=== PATIENT | female | born 1980 | race Asian ===

== ENCOUNTER 2018-10-16 23:18 | Inpatient (IN) | payer OTHER ==
[2018-10-17] MEDS ORDERED: Buffered Lidocaine 1% SYRIN* 1 ML/SYRINGE INTRADERM ONE (00:41)
[2018-10-17] MEDS ORDERED: Promethazine INJ(RESTRICTED)* 25 MG/ML 1 ML VIAL IV ONE (00:41)
[2018-10-17] MEDS ORDERED: Nalbuphine* 10 MG/ML 1 ML VIAL IV ONE (00:41)
[2018-10-17] MEDS ORDERED: Dinoprostone* 10 MG VAG.SUPP VAGINAL ONE (00:41)
[2018-10-17] MEDS ORDERED: Penicillin G Potassium IV* 5,000,000 UNITS in NS 0.9% 100 ML* 100 ML IVPB ONE (00:41)
[2018-10-17] MEDS ORDERED: Lactated Ringers 1000 ML Bag* 1,000 ML IV ONE ×2 (00:41→17:07)
--- NOTE | 2018-10-17 00:58 | HP ---
General Information - Reason for Visit 38yo, , IUP@37+2, PROM - General Information Maternal Age: 38 Grav: 3 Para: 1 SAB: 1 IEA: 0 Estimated Due Date: 11/04/18 Determined By: Early Ultrasound Gestational Age in Weeks/Days: 37+2 Maternal Blood Type and Rh: O Positive - Results this Serology/RPR Result: Non-Reactive Rubella Result: Immune HBsAg Result: Negative HIV Result: Negative GBS Culture Result: Positive Past Medical History Delivery History: Hx Uncomplicated Vaginal Delivery Pertinent Past Medical History: See Records Past Medical History Comment: Migraine Pertinent Past Surgical History: None Pertinent Family History: See Records Family History Comment: PGF Intestinal cancer MGM Intestinal cancer - Antepartal Records Antepartal Records: Reviewed, Complicated by: - AMA (38) Review of Systems Constitutional: Comfortable CV Complaint: No Respiratory: Shortness of Breath: No Gastrointestinal: No Nausea/Vomiting, Normal Bowel Movement Genitourinary: No Dysuria, No Bleeding Musculoskeletal: Contractions Neurological: No Headache, No Visual Changes Movement: Normal Exam Allergies/Adverse Reactions: Allergies No Known Allergies Allergy (Verified 08/31/17 12:54) Vital Signs 10/16/18 23:18 Temperature 98.5 F Pulse Rate 90 Respiratory 18 Rate Blood Pressure 139/75 (mmHg) O2 Sat by Pulse 96 Oximetry Lab Values - Entire Visit: Laboratory Tests 10/16/18 23:00 Vag Amniotic Fld Detect Positive - Measurements Pre- Weight: 138 lb - Exam Breast: Breast Exam Deferred CVA: No CVA Tenderness Extremities: No Edema Heart: Normal Rhythm/Heart Sounds HEENT: No Significant Findings Lungs: Clear Bilaterally Rectal: Rectal Exam Deferred Reflexes: DTR 2+ Thyroid: No Thyromegaly - Abdominal Exam Abdomen Exam: Non-Tender, Fundal Height Consistent with Dates - Ultrasound/Biophysical Profile Ultrasound Status: Not Done Targeted Exam Findings See L&D Outpatient Visit Provider Note for Findings: N/A Estimated Weight: 7-8lbs Cervical Exam: 1cm, 2cm Effacement: <50% Station: -3 Presenting Part: Vertex Membrane Status: SROM Amniotic Fluid Evaluation: Positive ROM Plus Bleeding/Discharge: None EFM Findings - External Monitor Findings Baseline Heart Rate: 130 External Monitor Findings: Accelerations Present, No Pattern of Variable or Late Decelerations, Variability Moderate External Monitor Findings Comment: No evidence of acidemia Contractions: Irregular, 45-90 Seconds Assessment/Plan - Assessment 38yo, , IUP@37+2, confirmed PROM VSS, afebrile GBS+ VE: 1-2/30%/-3, vtx - Jim 4 PROM, clear fluid Irregular contractions - Obstetrical Risk Factors Obstetrical Risk Factors: GBS Positive - Plan Plan: Induction, Cervical Ripening, Admit - Anticipate Vaginal Delivery Plan Comment: Admit to L&D Start abx for GBS prophylaxis Discussed risks vs. benefits of expectant management vs. ripening/IOL. Per ACOG recommendation and pt preference, proceed with ripening/IOL Given Jim score of 4, will start with Cervidil for ripening Epidural PRN in active labor Anticipate progression to - Date/Time of Admission Date of Admission: 10/17/18 Time of Admission: 00:30
[2018-10-17] MEDS ORDERED: Lactated Ringers 1000 ML Bag* 1,000 ML IV SCH ×3 (01:00→20:00)
[2018-10-17 01:45] LABS: ABS Basophils 0.1 10^3/ul (0-0.2); ABS Eosinophils 0 10^3/ul (0-0.6); ABS Lymphocytes 1.7 10^3/ul (1.0-4.8); ABS Monocytes 0.8 10^3/ul (0-0.8); ABS Neutrophils 6.4 10^3/ul (1.5-7.7); ABS Nucleated RBC 0 10^3/ul; Eosinophil % 0.5 %; Hematocrit 29 % (35-47); Hemoglobin 9.9 g/dl (12.0-16.0); Lymphocyte % 18.8 %; Mean Corpuscular HGB Conc 34 g/dl (31-36); Mean Corpuscular Hemoglobin 31 pg (27-31); Mean Corpuscular Volume 90 fL (80-97); Mean Platelet Volume 8.3 fL (7.4-10.4); Nucleated Red Blood Cells % 0; Platelet Count 270 10^3/ul (150-450); Red Blood Count 3.22 10^6/ul (4.00-5.40); Red Cell Distribution Width 14 % (10.5-15)
[2018-10-17] MEDS: Penicillin G Potassium IV* 2,500,000 UNITS in NS 0.9% 100 ML* 100 ML IVPB SCH ×4 (06:00→18:02)
--- NOTE | 2018-10-17 10:32 | PN ---
Progress Note - Progress Note Date of Service: 10/17/18 Note: S: Patient comfortable, feels contractions are still mild. Small amount of spotting, no bleeding. O: Cervidil fell out approx 0930 VE deferred for now VSS, afebrile FHT 130 Cat 1 UCs approx q 4-6 min A: IUP @ 37+3 weeks gestation Rupture of membranes GBS positive No evidence metabolic acidemia P: Patient to ambulate, see if contractions get stronger. PARQ discussion starting pitocin after 1-2 hours if no change in labor pattern, patients in agreement. Will likely want epidural when uncomfortable. Anticipate SVB.
[2018-10-17] MEDS ORDERED: Oxytocin in LR* 20 UNITS/1,000 ML BAG IVPB SCH ×2 (14:00→20:00)
--- NOTE | 2018-10-17 14:07 | PN ---
Progress Note - Progress Note Date of Service: 10/17/18 Note: S: Patient reports UCs are less frequent and less strong. Had lunch and a short nap, comfortable. O: VE 2/70/-3 UCs q 5-7 min FHT 135, Cat 1 vss, afebrile A: IUP @ 37+3 weeks gestation, rupture of membranes, for labor induction/ augmentation No evidence acidemia P: PARQ discussion of pitocin and patient in agreement. Begin low dose.
[2018-10-17] MEDS ORDERED: OBEPIDURAL* 250 ML EPIDURAL ONE (16:29)
[2018-10-17] MEDS ORDERED: Lidocaine 1.5% EPI 1:200,000* 30 ML SDV ONE (16:40)
--- NOTE | 2018-10-17 16:41 | PN ---
Progress Note - Progress Note Date of Service: 10/17/18 Note: S: Patient reports ctx stronger, considering epidural O: VE 6cm/90/-1 FHT appears to be 155 baseline, difficulty monitoring as patient ambulating Pit @ 4 vss, afebrile A: IUP in active labor P: Desires epidural, anesthesia aware. Anticipate SVB.
[2018-10-17] MEDS ORDERED: EPHEDrine (Pressors)* 50 MG/ML VIAL IV PUSH PRN ×2 (17:07)
[2018-10-17] MEDS ORDERED: Phenylephrine IV* 40 MCG/ML 10 ML SYRINGE IV PUSH PRN ×2 (17:07)
[2018-10-17] MEDS ORDERED: Sodium Citrate/Citric Acid* 15 ML UDC PO PRN (17:07)
[2018-10-17] MEDS ORDERED: Famotidine TAB* 20 MG PO PRN (17:07)
--- NOTE | 2018-10-17 17:29 | PN ---
Progress Note - Progress Note Date of Service: 10/17/18 Note: S: Patient comfortable with epidural O: VE by RN request due to difficulty placing catheter: 7cm/90/-2. Bulging bag felt VS stabilizing, some low after epidural placement, afebrile FHT 140 Pit off for procedure, back on @ 2 A: IUP in active labor No evidence metabolic acidemia P: Plan to monitor for some time, consider AROM. Increase Pit per protocol. Suggest side to side positions with peanut ball.
[2018-10-17] MEDS ORDERED: OBEPIDURAL* 250 ML EPIDURAL SCH (18:00)
[2018-10-17] MEDS ORDERED: Acetaminophen TAB* 325 MG PO PRN (19:44)
[2018-10-17] MEDS ORDERED: Ibuprofen TAB* 600 MG PO PRN (19:44)
[2018-10-17] MEDS ORDERED: Glycerin ADULT SUPP PR PRN (19:44)
[2018-10-17] MEDS ORDERED: Dibucaine 1% 28.35 GM TUBE PR PRN (19:44)
[2018-10-17] MEDS ORDERED: Witch Hazel PAD* JAR TOPICAL PRN (19:44)
--- NOTE | 2018-10-17 20:45 | PROCNOTE ---
[facility] OB: Delivery Note - Nursery Level of Nursery: Regular/Bedside - Perineum Perineal Injury: Perineal Laceration, 1st Degree Perineal Injury Comment: 3 stitch repair with 3-0 Rapide Perineal Repair: By Delivering Practioner - Events Delivery Events of Note: Pitocin During Labor, Pitocin Only After Delivery - Additional Delivery Notes Additional Delivery Notes: Patient admitted yesterday with SROM @ 37+2 weeks gestation. Cervidil then pitocin lead to active labor. Received epidural as desired with good relief. GBS prophylaxis was completed. Progressed to complete dilation with increased pressure and urge to push. LOL 5'3". Pushed 4 min. Baby born OA to CAITLIN @ 1918, shoulders following easily, loose nuchal and bandelaro cord unwrapped after delivery. Baby to maternal abdomen with spontaneous cry, HR >110. Apgars 9, 9. Cord doubly clamped and cut by FOB once pulsations ceased, approx 3 min. Placenta delivered @ 192 with gentle cord traction in the Concepcion presentation. Fundus firm with pitocin infusing. Small first degree perineal laceration repaired with 3 stitches, 3-0 Rapide. Patient and baby stable. Baby name Saida.
[2018-10-18] MEDS: Docusate CAP* 100 MG PO SCH ×4 (07:38→21:31)
[2018-10-18] MEDS: Penicillin G Potassium IV* 2,500,000 UNITS in NS 0.9% 100 ML* 100 ML IVPB SCH (07:38)
[2018-10-18 08:07] LABS: ABS Basophils 0 10^3/ul (0-0.2); ABS Eosinophils 0.1 10^3/ul (0-0.6); ABS Lymphocytes 1.9 10^3/ul (1.0-4.8); ABS Monocytes 0.8 10^3/ul (0-0.8); ABS Nucleated RBC 0 10^3/ul; Eosinophil % 0.7 %; Hematocrit 30 % (35-47); Lymphocyte % 16.3 %; Mean Corpuscular HGB Conc 34 g/dl (31-36); Mean Corpuscular Hemoglobin 31 pg (27-31); Mean Corpuscular Volume 90 fL (80-97); Mean Platelet Volume 8.6 fL (7.4-10.4); Nucleated Red Blood Cells % 0.1; Platelet Count 243 10^3/ul (150-450); Red Blood Count 3.27 10^6/ul (4.00-5.40); Red Cell Distribution Width 14 % (10.5-15); White Blood Count 11.9 10^3/ul (3.5-10.8)
[2018-10-18] MEDS ORDERED: Ferrous Gluconate TAB* 324 MG TAB PO SCH (09:00)
[2018-10-19 08:01] VITALS: BP 119/76
[2018-10-19] MEDS: Docusate CAP* 100 MG PO SCH ×2 (08:38→14:07)
== END 2018-10-19 14:55 | disposition home or self-care (01) | DRG 807 ==
LOC: MCHOBOUT 23:18 → MCHOB 10-17 00:25
PROVIDERS: ADMIT Advanced Practice Midwife; ATTEND Midwife
PROC: 10E0XZZ Delivery of Products of Conception, External Approach (ICD-10-PCS; principal; 2018-10-17)
PROC: 0HQ9XZZ Repair Perineum Skin, External Approach (ICD-10-PCS; 2018-10-17)
DX: O42.02 Full-term premature rupture of membranes, onset of labor within 24 hours of rupture (principal); Z37.0 Single live birth; O99.824 Streptococcus B carrier state complicating childbirth; O70.0 First degree perineal laceration during delivery; O69.9XX0 Labor and delivery complicated by cord complication, unspecified, not applicable or unspecified; Z3A.37 37 weeks gestation of pregnancy
CPT/HCPCS: 36415; 84112; 85025; 86850; 86900; 86901; A9270-GY; J2540

== ENCOUNTER 2019-03-20 11:20 | Emergency (ER) | payer OTHER ==
[2019-03-20 11:42] LABS: ABS Basophils 0.1 10^3/ul (0-0.2); ABS Eosinophils 0.1 10^3/ul (0-0.6); ABS Monocytes 0.5 10^3/ul (0-0.8); ABS Neutrophils 4.4 10^3/ul (1.5-7.7); Eosinophil % 1.5 %; Hematocrit 39 % (35-47); Lymphocyte % 27.9 %; Mean Corpuscular HGB Conc 34 g/dL (31-36); Mean Corpuscular Hemoglobin 29 pg (27-31); Mean Corpuscular Volume 87 fL (80-97); Mean Platelet Volume 8.2 fL (7.4-10.4); Platelet Count 263 10^3/uL (150-450); Red Blood Count 4.49 10^6 /uL (3.70-4.87); Red Cell Distribution Width 14 % (10-15); White Blood Count 7.1 10^3/uL (3.5-10.8)
--- NOTE | 2019-03-20 12:01 | ED ---
HPI Chest Pain - HPI Summary HPI Summary: This pt is a 38 y/o female presenting to [facility] c/o chest pain since this morning. Pt reports she began to have right sided chest pain since 08:00. At around 09:00 today pt began to feel dizzy. She notes since 10:00 today she has been having numbness on bilateral feet. She called her PCP and advised her to come to the ED. Currently she notes she still has mild pain on the right side of her chest. Denies hx of anxiety. Denies FHx of heart disease. She does not take any medications. Denies taking any control pills. Pt recently gave to a baby 5 months ago and is . - History of Current Complaint Chief Complaint: EDChestWallPain Time Seen by Provider: 03/20/19 11:49 Hx Obtained From: Patient Onset/Duration: Started Hours Ago, Still Present Timing: Lasting Hours Current Severity: Mild Pain Intensity: 2 Pain Scale Used: 0-10 Numeric Chest Pain Location: Right Anterior Chest Pain Radiates: No Character: Pressure/Squeezing - pressure Aggravating Factor(s): Nothing Alleviating Factor(s): Nothing Associated Signs and Symptoms: Positive: Chest Pain, Numbness, Dizziness. 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 Infectious Disease History: No Infectious Disease History: Denies: Traveled Outside the [place] in Last 30 Days - Family History Known Family History: Negative: Cardiac Disease - Social History Alcohol Use: None Substance Use Type: Reports: None Smoking Status (MU): Never Smoked Tobacco Have You Smoked in the Last Year: No Review of Systems Negative: Fever, Chills Positive: Chest Pain Neurological: Other - POSITIVE: dizziness Positive: Numbness All Other Systems Reviewed And Are Negative: Yes Physical Exam - Summary Physical Exam Summary: Appearance: Well appearing, no pain distress Skin: warm, dry, reflects adequate perfusion Head/face: normal Eyes: EOMI, CARLOS ALBERTO ENT: normal Chest: Tenderness over the right chest Neck: supple, non-tender Respiratory: CTA, breath sounds present Cardiovascular: RRR, pulses symmetrical Abdomen: non-tender, soft Musculoskeletal: normal, strength/ROM intact Neuro: normal, sensory motor intact, A&Ox3 Triage Information Reviewed: Yes Vital Signs On Initial Exam: Initial Vitals Temp Pulse Resp BP Pulse Ox 98.1 F 62 16 112/60 99 03/20/19 11:25 03/20/19 11:25 03/20/19 11:25 03/20/19 11:25 03/20/19 11:25 Vital Signs Reviewed: Yes Diagnostics - Vital Signs Vital Signs Temp Pulse Resp BP Pulse Ox 03/20/19 11:36 67 96 03/20/19 11:34 64 120/84 95 03/20/19 11:25 98.1 F 62 16 112/60 99 - Laboratory Lab Results: Lab Results 03/20/19 Range/Units 11:33 WBC 7.1 (3.5-10.8) 10^3/uL RBC 4.49 (3.70-4.87) 10^6 /uL Hgb 13.0 (12.0-16.0) g/dL Hct 39 (35-47) % MCV 87 (80-97) fL MCH 29 (27-31) pg MCHC 34 (31-36) g/dL RDW 14 (10-15) % Plt Count 263 (150-450) 10^3/uL MPV 8.2 (7.4-10.4) fL Neut % (Auto) 62.2 % Lymph % (Auto) 27.9 % Sebastian % (Auto) 7.6 % Eos % (Auto) 1.5 % Baso % (Auto) 0.8 % Absolute Neuts (auto) 4.4 (1.5-7.7) 10^3/ul Absolute Lymphs (auto) 2.0 (1.0-4.8) 10^3/ul Absolute Monos (auto) 0.5 (0-0.8) 10^3/ul Absolute Eos (auto) 0.1 (0-0.6) 10^3/ul Absolute Basos (auto) 0.1 (0-0.2) 10^3/ul Absolute Nucleated RBC 0.0 10^3/ul Nucleated RBC % 0.0 Result Diagrams: 03/20/19 11:33 03/20/19 11:33 Lab Statement: Any lab studies that have been ordered have been reviewed, and results considered in the medical decision making process. - Radiology Chest XR Radiology Interpretation Completed By: Radiologist Summary of Radiographic Findings: IMPRESSION: No active cardiopulmonary disease. Dr. Lovelace has reviewed this report. - EKG 11:24 Cardiac Rate: NL - at 62 bpm EKG Rhythm: Sinus Rhythm Summary of EKG Findings: no acute changes Chest Pain Course/Dx - Course Assessment/Plan: Pt is a 38 y/o female presenting to [facility] c/o chest pain since this morning. Pt reports she began to have right sided chest pain since 08:00. At around 09:00 today pt began to feel dizzy. She notes since 10:00 today she has been having numbness on bilateral feet. Test results are unremarkable except for total bili of 1.3. Troponin is negative and D-dimer is negative. Chest XR is negative for an active cardiopulmonary disease. EKG is normal sinus rhythm at 62 bpm. Pt will be discharged home with follow up from her PCP in 3 days. She was instructed to return to the ED for any worsening or new symptoms. - Chest Pain Differential Diagnosis/HQI/PQRI: Chest Wall, Lower Respiratory Infection, Pulmonary Embolism - Diagnoses Provider Diagnoses: Chest pain Discharge - Sign-Out/Discharge Documenting (check all that apply): Patient Departure - Discharge home Patient Received Moderate/Deep Sedation with Procedure: No - Discharge Plan Condition: Stable Disposition: HOME Patient Education Materials: Chest Pain (ED) Referrals: Dallas Dawson MD [Primary Care Provider] - Additional Instructions: Please follow up with your primary care provider in 3 days. RETURN TO THE ED FOR ANY NEW OR WORSENING SYMPTOMS. - Billing Disposition and Condition Condition: STABLE Disposition: Home - Attestation Statements Document Initiated by Scribe: Yes Documenting Scribe: Clarisa Barrera Provider For Whom Dimitrios is Documenting (Include Credential): Ryan Lovelace MD Scribe Attestation: Clarisa Collier, scribed for Ryan Lovelace MD on 03/20/19 at 1352. Scribe Documentation Reviewed: Yes Provider Attestation: The documentation as recorded by the scribe, Clarisa Barrera accurately reflects the service I personally performed and the decisions made by me, Ryan Lovelace MD Status of Scribjackie Document: Viewed
[2019-03-20 12:07] LABS: Albumin 4.6 g/dL (3.2-5.2); Albumin/Globulin Ratio 1.4 (1-3); BUN/Creatinine Ratio 28.3 (8-20); Calcium 9.8 mg/dL (8.6-10.3); EGFR African American 157.9 (>60); EGFR Non-African American 130.5 (>60); Globulin 3.4 g/dL (2-4); Potassium 4.1 mmol/L (3.5-5.0); Total Bilirubin 1.3 mg/dL (0.2-1.0)
[2019-03-20] MEDS ORDERED: Ibuprofen TAB* 600 MG PO ONE (12:57)
[2019-03-20 13:56] VITALS: BP 115/74
== END 2019-03-20 13:54 | disposition home or self-care (01) ==
LOC: ED 11:20
DX: R07.89 Other chest pain (principal); R42 Dizziness and giddiness; R20.0 Anesthesia of skin
CPT/HCPCS: 36415; 71045; 80053; 83605; 84484; 85025; 85379; 93005; 99283; A9270-GY